=== PATIENT | male | born 1970 | race Caucasian/White ===

== ENCOUNTER 2019-08-08 19:10 | Emergency (ER) | payer OTHER ==
[~2019-08-08] VITALS: Ht 177.8 cm; Wt 90.7 kg
[2019-08-08 19:41] LABS: URINE BILIRUBIN NEGATIVE (Negative); URINE BLOOD NEGATIVE (Negative); URINE CLARITY SL CLOUDY; URINE COLOR YELLOW; URINE GLUCOSE-RANDOM NEGATIVE (Negative); URINE KETONES NEGATIVE (Negative); URINE LEUKOCYTES-REFLEX TRACE (Negative); URINE NITRITE-REFLEX NEGATIVE (Negative); URINE PROTEIN TRACE (Negative); URINE SPECIFIC GRAVITY >= 1.030 (1.005-1.030); URINE UROBILINOGEN 0.2 E.U./dl (0.2-1.0)
[2019-08-08 19:52] LABS: BACTERIA-REFLEX >30 Many /HPF (None Seen); CASTS None Seen /LPF (None Seen); CRYSTALS None Seen /LPF (None Seen); MUCUS >6 Heavy strn/LPF (None Seen); SQUAMOUS 0-3 Few /LPF (0-3); URINE RBC 0-2 Rare /HPF (0-2); URINE WBC-REFLEX >25 Many /HPF (0-5); WBC CLUMPS Few (None Seen)
[2019-08-08] MEDS ORDERED: CIPROFLOXACIN500 M1 PO (19:53)
[2019-08-08 20:37] VITALS: BP 137/77
== END 2019-08-08 20:38 | disposition home or self-care (01) ==
LOC: M.ERS 19:10
PROVIDERS: Personal Emergency Response Attendant
DX: Z20.2 Contact with and (suspected) exposure to infections with a predominantly sexual mode of transmission (principal)